=== PATIENT | female | born 1960 | race Caucasian/White ===

== ENCOUNTER → 2019-10-20 12:00 | Outpatient (BNVA) | payer BC, SELFPAY | PROVIDERS: Family Provider Family Medicine; PCP Family Medicine; Visit Provider Internal Medicine | DX: C73 Malignant neoplasm of thyroid gland (principal) | CPT/HCPCS: 84439; 84443; 86800 ==

== ENCOUNTER → 2020-02-09 13:37 | Outpatient (BNVA) | payer BC, SELFPAY | PROVIDERS: Family Provider Family Medicine; PCP Family Medicine; Visit Provider Internal Medicine | DX: C73 Malignant neoplasm of thyroid gland (principal) | CPT/HCPCS: 36415; 84439; 84443 ==

== ENCOUNTER → 2020-07-27 16:41 | Outpatient (BNVA) | payer BC, SELFPAY | PROVIDERS: Family Provider Family Medicine; PCP Family Medicine; Visit Provider Nurse Practitioner Family | DX: Z23 Encounter for immunization (principal) | CPT/HCPCS: 87635 ==

== ENCOUNTER 2020-12-14 11:04 | Outpatient (CLI) | payer BC, SELFPAY ==
--- NOTE | 2020-12-14 12:00 | MM_ITS ---
WS: [id number] BILATERAL DIGITAL SCREENING MAMMOGRAPHY WITH CAD CLINICAL INFORMATION: Z12.39 - Encounter for other screening for malignant neop... HISTORY: Screening mammogram. No current complaints. COMPARISON: TECHNIQUE: Bilateral CC and MLO views. FINDINGS: The breasts are composed of heterogeneous fibroglandular density tissue, which can limit the detectio n of small underlying mass lesions. No suspicious mass, asymmetry, calcifications, or architectural d istortion. No evidence of malignancy. A few punctate calcifications. MM/[place] [id number] IMPRESSION: BI-RADS: 2-Benign FOLLOW UP: 1 Year Follow-up Recommend return to annual screening mammography.
== END 2020-12-14 11:05 | disposition home or self-care (01) ==
LOC: RADSHAW 11:07
PROVIDERS: Family Provider Family Medicine; PCP Family Medicine; Visit Provider Nurse Practitioner Women's Health
DX: Z12.31 Encounter for screening mammogram for malignant neoplasm of breast (principal)
CPT/HCPCS: 77067

== ENCOUNTER → 2021-02-21 10:14 | Outpatient (BNVA) | payer BC, SELFPAY | PROVIDERS: Family Provider Family Medicine; PCP Family Medicine; Visit Provider Internal Medicine | DX: Z90.09 Acquired absence of other part of head and neck (principal) | CPT/HCPCS: 84432; 84439; 84443; 86800 ==

== ENCOUNTER 2021-04-26 14:45 | Outpatient (CLI) | payer BC, SELFPAY ==
--- NOTE | 2021-04-26 15:00 | US_ITS ---
WS: [id number] THYROID ULTRASOUND HISTORY: thyroid cancer history COMPARISON: 02/07/2009 Patient is status post complete thyroidectomy. No residual or recurrent thyroid tissue along either t hyroid bed. There are small benign cervical chain lymph nodes. US/US thyroid [id number] IMPRESSION: Complete thyroidectomy with no recurrent mass or adenopathy.
== END 2021-04-26 14:46 | disposition home or self-care (01) ==
LOC: RAD 14:49
PROVIDERS: PCP Family Medicine; Visit Provider Internal Medicine
DX: Z85.850 Personal history of malignant neoplasm of thyroid (principal); E89.0 Postprocedural hypothyroidism
CPT/HCPCS: 76536

== ENCOUNTER → 2021-08-09 10:06 | Outpatient (BNVA) | payer BC, SELFPAY | PROVIDERS: PCP Family Medicine; Visit Provider Internal Medicine | DX: E89.0 Postprocedural hypothyroidism (principal); Z90.09 Acquired absence of other part of head and neck | CPT/HCPCS: 84432; 84439; 84443; 86800 ==

== ENCOUNTER → 2021-08-12 08:02 | Outpatient (BNVA) | payer BC, SELFPAY | PROVIDERS: PCP Family Medicine; Visit Provider Internal Medicine | DX: E89.0 Postprocedural hypothyroidism (principal); Z90.09 Acquired absence of other part of head and neck; Z85.850 Personal history of malignant neoplasm of thyroid | CPT/HCPCS: 84432; 86800 ==

== ENCOUNTER → 2021-09-26 14:00 | Outpatient (BNVA) | payer BC, SELFPAY | PROVIDERS: PCP Family Medicine; Visit Provider Registered Nurse Neonatal Intensive Care | DX: R05.9 Cough, unspecified (principal); B34.9 Viral infection, unspecified; R07.0 Pain in throat; R09.81 Nasal congestion; Z20.822 Contact with and (suspected) exposure to COVID-19 | CPT/HCPCS: 87635; 87801; 87880 ==

== ENCOUNTER 2022-01-30 13:15 | Outpatient (CLI) | payer BC, SELFPAY ==
--- NOTE | 2022-01-30 13:30 | XR_ITS ---
WS: [id number] DEXA (DUAL ENERGY X-RAY ABSORPTIOMETRY) Bone mineral density was performed using a [employer] machine. HISTORY: Z13.820 - Encounter for screening for osteoporosis COMPARISON: None available. Lumbar spine BMD (L1-L4): 0.854 g/cm2 T score: -2.7 Z score: -1.6 Total hip BMD: Left: 0.726 g/cm2. T score: -2.2 Z score: -1.4 Right: 0.681 g/cm2. T score: -2.6 Z score: -1.8 10 year probability of a major osteoporotic fracture is 19.9%. Mild RIGHT curvature lumbar spine. XR/XR DEXA axial skeleton* [id number] IMPRESSION: OSTEOPOROSIS based upon the WHO classification for females. Patient has signifi cant increased risk for fracture.
== END 2022-01-30 13:16 | disposition home or self-care (01) ==
LOC: RAD 13:16
PROVIDERS: PCP Family Medicine; Visit Provider Nurse Practitioner Women's Health
DX: Z13.820 Encounter for screening for osteoporosis (principal); Z78.0 Asymptomatic menopausal state; M81.0 Age-related osteoporosis without current pathological fracture
CPT/HCPCS: 77080

== ENCOUNTER → 2022-02-04 08:37 | Outpatient (BNVA) | payer OTHER, SELFPAY | PROVIDERS: PCP Family Medicine; Visit Provider Orthopaedic Surgery | DX: S82.031D Displaced transverse fracture of right patella, subsequent encounter for closed fracture with routine healing (principal); M25.561 Pain in right knee; X58.XXXD Exposure to other specified factors, subsequent encounter | CPT/HCPCS: 73560 ==

== ENCOUNTER 2022-02-12 06:00 | Outpatient (RCR) | payer OTHER, SELFPAY | END 2022-02-26 23:59 | disposition home or self-care (01) | LOC: GPT 06:00 | PROVIDERS: PCP Family Medicine; Referring Provider Orthopaedic Surgery; Visit Provider Orthopaedic Surgery | DX: S82.001D Unspecified fracture of right patella, subsequent encounter for closed fracture with routine healing (principal); X58.XXXD Exposure to other specified factors, subsequent encounter | CPT/HCPCS: 97110; 97112; 97140; 97161 ==

== ENCOUNTER 2022-02-27 06:00 | Outpatient (RCR) | payer OTHER, SELFPAY | END 2022-03-28 23:59 | disposition home or self-care (01) | LOC: GPT 06:00 | PROVIDERS: PCP Family Medicine; Visit Provider Orthopaedic Surgery | DX: M25.561 Pain in right knee (principal); M25.661 Stiffness of right knee, not elsewhere classified | CPT/HCPCS: 97110; 97112; 97140; 97530 ==

== ENCOUNTER 2022-03-13 05:53 | Day surgery (SDC) | payer BC, SELFPAY ==
[2022-03-12 12:11] VITALS: BMI 21.4
[2022-03-13 06:10] VITALS: BP 147/81; PULSE 70; RESP 16; TEMP 36.6; O2SAT 100
[2022-03-13] MEDS: sodium chloride 0.9% 1,000 ML 30 ML IV (06:17)
--- NOTE | 2022-03-13 06:44 | P.HP_ITS ---
Same Day Surgery H&P Indication for Procedure/HPI DATE OF PROCEDURE: March 13, 2022 CHIEF COMPLAINT/INDICATIONFOR SURGICAL PROCEDURE: Screening colonoscopy PREOP DIAGNOSIS: Screening colonoscopy PLANNED PROCEDURE: Operation Date: 03/13/22 07:30 Proposed Procedures p Colonoscopy 80924/z12.11(Not Applicable) - Nir Prasad MD This is a pleasant 61 years old female patient referred to my practice for screening colonoscopy. Patient never had one before. Denies bleeding per rectum or history of colon cancer. ROS All systems have been reviewed negative except as for the above or per problem list. Medications/Allergies* Home Medications Medication Instructions Recorded Confirmed Type AZO yeast Plus 1 tab PO DAILY 10/27/19 03/13/22 History Leg Vein & Circulation 1 tab PO DAILY 10/27/19 03/13/22 History Menopause Support 1 tab PO DAILY 10/27/19 03/13/22 History Saccharomyces boulardii 250 mg 250 mg PO DAILY PRN yeast 10/27/19 03/13/22 History capsule (Daily Probiotic (S. boulardii)) bilberry (vaccinium myrtillus) 500 500 mg PO DAILY 10/27/19 03/13/22 History mg capsule calcium and magnesium carbonates 1 tab PO DAILY 10/27/19 03/13/22 History 520 mg-400 mg tablet krill oil 500 mg capsule 1 mg PO DAILY 10/27/19 03/13/22 History loratadine 10 mg capsule 10 mg PO DAILY 10/27/19 03/13/22 History qtbdleij-out-mncfy ac 400 1 tab PO DAILY 10/27/19 03/13/22 History mcg-calcium carb 500 mg-vit K1 20 mcg tablet (Women's 50 Plus Multivitamin) cholecalciferol (vitamin D3) 5,000 unit PO DAILY 08/15/21 03/13/22 History Allergies/Adverse Reactions Allergy/AdvReac Type Severity Reaction Status Date / Time No Known Allergies Allergy Verified 03/13/22 06:46 Current Medications: Generic Name Dose Route Start Last Admin Trade Name Freq PRN Reason Stop Dose Admin Sodium Chloride 1,000 mls @ 30 mls/hr 03/13/22 06:15 03/13/22 06:17 Sodium Chloride 0.9% IV 03/14/22 06:14 30 mls/hr .Q24H SERGIO Administration Pertinent History/Comorbid Conditions* Medical History (Updated 02/04/22 @ 09:03 by Kevin Li MD) H/O herpes genitalis States that she first had a herpes outbreak in 1992 and has been taking suppression treatment to prevent outbreaks. She states that her is also on suppression. She would like a refill on this medication. - History of papillary adenocarcinoma of thyroid Diagnosed with thyroid cancer in 2009 and she had a total thyroidectomy after which she has had to take thyroid replacement medication. She states that she is doing well with this. She is being followed by in [facility] No pertinent past medical history neghx: htn,dm,dvt/pe PCP: Dr. Hernández Vaginal atrophy Surgical History (Updated 10/31/21 @ 09:11 by Hiwot Castillo APN, DEMARIO) H/O foot surgery Right--removed bone spurs H/O thyroidectomy (~2009) Preformed in [place], [place] Due to Thyroid cancer Status post endovenous radiofrequency ablation of saphenous vein (~06/2020) Dr. Fields--- [facility] Family History (Updated 10/30/20 @ 10:13 by Katt Ly) Diabetes Grandmother Maternal Heart disease Father Hyperlipidemia Father Breast cancer Mother diagnosed at the age of 85 Family/Other Paternal aunt diagnosed at the age unknown Family history of thyroid problem Sister Hypertension Father Mother Denies family history of Colon cancer Ovarian cancer Uterine cancer Stroke Social History Smoking and tobacco status: never smoked Pertinent Exam Findings alert, oriented x 3, clear to auscultation bilaterally, regular rate & rhythm and procedure specific exam findings (Abdominal exam nontender nondistended soft) Recommendations Surgery/Procedure today (Colonoscopy with possible biopsy) Other Plans: Plan of care; After thorough history and physical examination and reviewing the chart, plan to perform screening colonoscopy. I discussed with the patient in details the risks,benefits,alternatives and indications.The risk of aspiration, bleeding, soft tissue injury, perforation of the colon and other potential concomitant complications were explained to the patient in details,also the potential need for Laproscoy/Laparotomy to repair any related complications including but not limited to colectomy and or Closotomy.The patient understood this well and did agree to proceed. Rationale was carefully and clearly discussed with the patient.Appropriate informed consent have been reviewed and signed All questions have been answered and all concerns have been addressed to patient's satisfaction. Verbal and written Instructions were given to the patient for colonoscopy prep. Coding Level of Care Code Acute Ethnology Teacher for Neftaly Mosley
--- NOTE | 2022-03-13 06:59 | ANES.PREANE2 ---
Pre-Anesthetic Assessment Height/Weight: Height 1.8 m Weight 69.853 kg Temp Pulse Resp BP Pulse Ox O2 Del Method 97.8 F 70 16 147/81 100 03/13/22 06:10 03/13/22 06:10 03/13/22 06:10 03/13/22 06:10 03/13/22 06:10 03/13/22 06:10 Preop Diagnosis: Screeening colonoscopy Operation Date: 03/13/22 07:30 Proposed Procedures p Colonoscopy 56935/z12.11(Not Applicable) - Nir Prasad MD Last intake: Intake Last Liquid Date 03/12/22 Last Liquid Time 22:30 Last Solid Date 03/11/22 Last Solid Time 22:00 Exam alert, oriented x 3, clear to auscultation bilaterally and regular rate & rhythm Airway Submandibular: within normal limits Cervical ROM: within normal limits Mallampati: Class I Pulmonary None reported CV/HEM None reported None reported Hepatic None reported GI None reported Metabolic Thyroid Disease [facility] None reported Neuropsych None reported Anesthetic Plan ASA status: 2 Anesthesia: Anesthesia Evaluation and MAC Risk of > 500 ml blood loss (7ml/kg in children): Yes, adequate IV access and fluids planned Medications/Allergies Home Medications Medication Instructions Recorded Confirmed Last Taken Type AZO yeast Plus 1 tab PO DAILY 10/27/19 03/13/22 03/11/22 History Leg Vein & Circulation 1 tab PO DAILY 10/27/19 03/13/22 03/11/22 History Menopause Support 1 tab PO DAILY 10/27/19 03/13/22 03/11/22 History Saccharomyces boulardii 250 mg 250 mg PO DAILY PRN yeast 10/27/19 03/13/22 03/11/22 History capsule (Daily Probiotic (S. boulardii)) bilberry (vaccinium myrtillus) 500 500 mg PO DAILY 10/27/19 03/13/22 03/11/22 History mg capsule calcium and magnesium carbonates 1 tab PO DAILY 10/27/19 03/13/22 03/11/22 History 520 mg-400 mg tablet krill oil 500 mg capsule 1 mg PO DAILY 10/27/19 03/13/22 03/11/22 History loratadine 10 mg capsule 10 mg PO DAILY 10/27/19 03/13/22 03/11/22 History oesmubge-hpe-wfbcw ac 400 1 tab PO DAILY 10/27/19 03/13/22 03/11/22 History mcg-calcium carb 500 mg-vit K1 20 mcg tablet (Women's 50 Plus Multivitamin) levothyroxine 100 mcg tablet 100 mcg PO DAILY #90 tabs 05/13/21 03/13/22 03/13/22 Rx cholecalciferol (vitamin D3) 5,000 unit PO DAILY 08/15/21 03/13/22 03/11/22 History acyclovir 400 mg tablet 400 mg PO BID #60 tabs 10/31/21 03/13/22 03/12/22 Rx conjugated estrogens 0.625 mg/gram 0.3125 mg vaginal .twice weekly 10/31/21 03/13/22 03/11/22 Rx vaginal cream (Premarin) #30 grams Crutches #1 ea 02/04/22 03/12/22 Unknown Rx Allergies Allergy/AdvReac Type Severity Reaction Status Date / Time No Known Allergies Allergy Verified 03/13/22 06:46 Current Medications Generic Name Dose Route Start Last Admin Trade Name Freq PRN Reason Stop Dose Admin Sodium Chloride 1,000 mls @ 30 mls/hr 03/13/22 06:15 03/13/22 06:17 Sodium Chloride 0.9% IV 03/14/22 06:14 30 mls/hr .Q24H SERGIO Administration PFSH Anesthesia Medical History H/O herpes genitalis States that she first had a herpes outbreak in 1992 and has been taking suppression treatment to prevent outbreaks. She states that her is also on suppression. She would like a refill on this medication. - History of papillary adenocarcinoma of thyroid Diagnosed with thyroid cancer in 2009 and she had a total thyroidectomy after which she has had to take thyroid replacement medication. She states that she is doing well with this. She is being followed by in [facility] No pertinent past medical history neghx: htn,dm,dvt/pe PCP: Dr. Hernández Vaginal atrophy Surgical History H/O foot surgery Right--removed bone spurs H/O thyroidectomy (~2009) Preformed in [place], [place] Due to Thyroid cancer Status post endovenous radiofrequency ablation of saphenous vein (~06/2020) Dr. Fields--- [facility] Family History Father Heart disease Hypertension Hyperlipidemia Sister Family history of thyroid problem Grandmother Diabetes Maternal Mother Hypertension Breast cancer diagnosed at the age of 85 Family/Other Breast cancer Paternal aunt diagnosed at the age unknown Denies family history of Colon cancer Ovarian cancer Uterine cancer Stroke Social History Smoking and tobacco status: never smoked Data Anesthesia Cardiac Studies: No Data to Display
[2022-03-13 07:43] VITALS: BP 125/73; PULSE 64; RESP 16; TEMP 36.3; O2SAT 100
[2022-03-13 07:52] VITALS: BP 121/75; PULSE 60; RESP 18; O2SAT 100
--- NOTE | 2022-03-13 15:14 | ANE.PACU2 ---
Inpatient post-anesthesia follow up: Airway intact: Yes Vital signs: Temperature 97.3 F Pulse Rate 60 Respiratory Rate 18 Blood Pressure 121/75 Pulse Oximetry 100 Oxygen Delivery Me thod Room Air Oxygen Flow Rate Fraction of Inspir ed Oxygen Hydration adequate: Yes Nausea and vomiting: No Pain level: 1 Mental status: Baseline
== END 2022-03-13 08:10 | disposition home or self-care (01) ==
PROVIDERS: PCP Family Medicine; Visit Provider Surgery
PROC: 0DJD8ZZ Inspection of Lower Intestinal Tract, Via Natural or Artificial Opening Endoscopic (ICD-10-PCS; CPT 45378; principal; 2022-03-13 07:30)
DX: Z12.11 Encounter for screening for malignant neoplasm of colon (principal)
CPT/HCPCS: 45378; J2704; J7030

== ENCOUNTER 2022-03-29 06:00 | Outpatient (RCR) | payer OTHER, SELFPAY | END 2022-04-28 23:59 | disposition home or self-care (01) | LOC: GPT 06:00 | PROVIDERS: PCP Family Medicine; Visit Provider Orthopaedic Surgery | DX: M25.561 Pain in right knee (principal); M25.661 Stiffness of right knee, not elsewhere classified | CPT/HCPCS: 97110; 97112; 97164; 97530 ==

== ENCOUNTER 2022-07-03 12:15 | Outpatient (CLI) | payer OTHER, SELFPAY ==
--- NOTE | 2022-07-03 12:43 | XRR_ITS ---
PROCEDURE INFORMATION: Exam: XR Right Foot Exam date and time: 07/03/2022 12:50 PM Age: 61 years old Clinical indication: Pain; Right; Prior surgery; Surgery type: RT foot spurs; Additional info: Right foot pain and swelling TECHNIQUE: Imaging protocol: Radiologic exam of the Right foot. Views: 1 or 2 views. COMPARISON: CR XR knee RT 1-2V [id number] 02/04/2022 8:36 AM FINDINGS: Bones/joints: Normal. Soft tissues: Normal. XR/XR foot RT 2V [id number] IMPRESSION: No acute findings.
== END 2022-07-03 12:16 | disposition home or self-care (01) ==
LOC: RAD 12:19
PROVIDERS: PCP Family Medicine; Visit Provider Family Medicine
DX: M79.671 Pain in right foot (principal); Z13.6 Encounter for screening for cardiovascular disorders; Z79.899 Other long term (current) drug therapy
CPT/HCPCS: 73620; 80053; 80061; 85025

== ENCOUNTER → 2022-07-25 10:28 | Outpatient (BNVA) | payer OTHER, SELFPAY | PROVIDERS: PCP Family Medicine; Visit Provider Podiatrist Foot & Ankle Surgery | DX: M72.2 Plantar fascial fibromatosis (principal); M21.611 Bunion of right foot; M21.612 Bunion of left foot; M20.11 Hallux valgus (acquired), right foot; M20.12 Hallux valgus (acquired), left foot; B35.1 Tinea unguium; M77.51 Other enthesopathy of right foot and ankle | CPT/HCPCS: 73630 ==

== ENCOUNTER → 2022-07-31 09:50 | Outpatient (BNVA) | payer OTHER, SELFPAY | PROVIDERS: PCP Family Medicine; Visit Provider Internal Medicine | DX: E89.0 Postprocedural hypothyroidism (principal); Z85.850 Personal history of malignant neoplasm of thyroid | CPT/HCPCS: 84432; 84439; 84443; 86800 ==

== ENCOUNTER → 2022-10-20 13:43 | Outpatient (BNVA) | payer OTHER, SELFPAY | PROVIDERS: PCP Family Medicine; Visit Provider Nurse Practitioner | DX: R39.9 Unspecified symptoms and signs involving the genitourinary system (principal) | CPT/HCPCS: 81000; 87086; 87491; 87591 ==

== ENCOUNTER 2022-11-21 14:01 | Outpatient (CLI) | payer OTHER, SELFPAY ==
--- NOTE | 2022-11-21 14:19 | MM_ITS ---
WS: [id number] BILATERAL 3D TOMOSYNTHESIS DIGITAL SCREENING MAMMOGRAPHY WITH CAD CLINICAL INFORMATION: SCREEN HISTORY: Screening mammogram. No current complaints. COMPARISON: 2020 TECHNIQUE: Bilateral CC and MLO views. FINDINGS: The breasts are composed of heterogeneous fibroglandular density tissue, which can limit the detectio n of small underlying mass lesions. No suspicious mass, asymmetry, calcifications, or architectural d istortion. No evidence of malignancy. A few tiny incidental calcifications. MM/[place] [id number] IMPRESSION: BI-RADS: 2-Benign FOLLOW UP: 1 Year Follow-up Recommend return to annual screening mammography.
== END 2022-11-21 14:02 | disposition home or self-care (01) ==
LOC: RAD 14:03
PROVIDERS: PCP Family Medicine; Visit Provider Nurse Practitioner Women's Health
DX: Z12.31 Encounter for screening mammogram for malignant neoplasm of breast (principal)
CPT/HCPCS: 77063; 77067

== ENCOUNTER → 2023-08-18 09:21 | Outpatient (BNVA) | payer OTHER, SELFPAY | PROVIDERS: PCP Family Medicine; Visit Provider Internal Medicine | DX: Z90.09 Acquired absence of other part of head and neck (principal); Z85.850 Personal history of malignant neoplasm of thyroid | CPT/HCPCS: 84432; 84439; 84443; 86800 ==

== ENCOUNTER 2023-09-03 13:14 | Outpatient (CLI) | payer OTHER, SELFPAY ==
--- NOTE | 2023-09-03 13:45 | US_ITS ---
WS: [id number] THYROID ULTRASOUND HISTORY: h/o papillary adenocarcinoma, prior thyroidectomy 13 years ago. COMPARISON: 04/26/2021 No mass is identified along the thyroid bed. No adenopathy. Normal appearance to each submandibular g land. IMPRESSION: Status post complete thyroidectomy. No recurrent mass or adenopathy at the thyroid bed.
== END 2023-09-03 13:15 | disposition home or self-care (01) ==
LOC: RAD 13:14
PROVIDERS: PCP Family Medicine; Visit Provider Internal Medicine
DX: Z85.850 Personal history of malignant neoplasm of thyroid (principal); Z90.09 Acquired absence of other part of head and neck; E89.0 Postprocedural hypothyroidism
CPT/HCPCS: 76536

== ENCOUNTER → 2023-11-26 08:47 | Outpatient (BNVA) | payer OTHER, SELFPAY | PROVIDERS: PCP Family Medicine; Visit Provider Internal Medicine Rheumatology | DX: M81.0 Age-related osteoporosis without current pathological fracture (principal) | CPT/HCPCS: 80076; 82306; 82565; 85025; 86140 ==

== ENCOUNTER 2024-02-04 13:45 | Outpatient (CLI) | payer OTHER, SELFPAY ==
--- NOTE | 2024-02-04 14:00 | XR_ITS ---
WS: [id number] DEXA (DUAL ENERGY X-RAY ABSORPTIOMETRY) Bone mineral density was performed using a [employer] machine. HISTORY: M81.0 - Age-related osteoporosis without current patholog... COMPARISON: 01/30/2022 Lumbar spine BMD (L1-L4): 0.952 g/cm2 T score: -1.9 Z score: -0.6 Total hip BMD: Left: 0.764 g/cm2. T score: -1.9 Z score: -0.9 Right: 0.734 g/cm2. T score: -2.2 Z score: -1.2 10 year probability of a major osteoporotic fracture is 11.6%. Compared to the prior study from 01/30/2022. Lumbar spine bone mineral density has increased by 11.5%. Bilateral hips bone mineral density has increased by 6.5%. XR/XR DEXA axial skeleton* [id number] IMPRESSION: OSTEOPENIA based upon the WHO classification for females. Significant increase in bone mineral density within the lumbar spine and hips s tootie the prior study.
== END 2024-02-04 13:46 | disposition home or self-care (01) ==
LOC: RAD 13:46
PROVIDERS: PCP Family Medicine; Visit Provider Internal Medicine Rheumatology
DX: Z13.820 Encounter for screening for osteoporosis (principal); M85.80 Other specified disorders of bone density and structure, unspecified site; M81.0 Age-related osteoporosis without current pathological fracture
CPT/HCPCS: 77080

== ENCOUNTER → 2024-02-19 15:22 | Outpatient (BNVA) | payer OTHER, SELFPAY | PROVIDERS: PCP Family Medicine; Visit Provider Nurse Practitioner Women's Health | DX: Z12.4 Encounter for screening for malignant neoplasm of cervix (principal) | CPT/HCPCS: 87624 ==

== ENCOUNTER → 2024-06-09 09:31 | Outpatient (BNVA) | payer OTHER, SELFPAY | PROVIDERS: PCP Family Medicine; Visit Provider Internal Medicine Rheumatology | DX: M81.0 Age-related osteoporosis without current pathological fracture (principal); Z79.899 Other long term (current) drug therapy | CPT/HCPCS: 80076; 82306; 82310; 82565; 85025; 86140 ==

== ENCOUNTER → 2024-08-12 09:39 | Outpatient (BNVA) | payer OTHER, SELFPAY | PROVIDERS: PCP Family Medicine; Visit Provider Internal Medicine | DX: E89.0 Postprocedural hypothyroidism (principal); Z90.09 Acquired absence of other part of head and neck | CPT/HCPCS: 84432; 84439; 84443; 86800 ==

== ENCOUNTER → 2024-12-22 08:25 | Outpatient (BNVA) | payer OTHER, SELFPAY | PROVIDERS: PCP Family Medicine; Visit Provider Internal Medicine Rheumatology | DX: Z79.899 Other long term (current) drug therapy (principal) | CPT/HCPCS: 80076; 82306; 82310; 82565; 85025; 85651; 86140 ==

== ENCOUNTER 2025-03-02 14:17 | Outpatient (CLI) | payer OTHER, SELFPAY ==
--- NOTE | 2025-03-02 14:40 | MM_ITS ---
WS: [id number] BILATERAL SCREENING DIGITAL TOMOSYNTHESIS MAMMOGRAM WITH CAD HISTORY: Z12.39 - Encounter for other screening for malignant neop... COMPARISON: 11/21/2022, 12/14/2021 Bilateral CC and MLO views with tomosynthesis and synthetic mammography submitted. Computer aided detection analyzed. Breast composition: The breasts are heterogeneously dense, which may obscure small masses. No suspicious masses, microcalcifications or architectural distortion. Benign calcifications in each breast are stable. No suspicious grouping of calcification. MM/MM scr tomosynthesis [id number] IMPRESSION: BI-RADS: 2 - Benign FOLLOW UP: 1 Year Follow-up
== END 2025-03-02 14:18 | disposition home or self-care (01) ==
LOC: RAD 14:19
PROVIDERS: PCP Family Medicine; Visit Provider Nurse Practitioner Women's Health
DX: Z12.31 Encounter for screening mammogram for malignant neoplasm of breast (principal); R92.333 Mammographic heterogeneous density, bilateral breasts; R92.1 Mammographic calcification found on diagnostic imaging of breast
CPT/HCPCS: 77063; 77067